=== PATIENT | female | born 1945 | race Caucasian/White ===

== ENCOUNTER → 2020-03-28 09:01 | Outpatient (BNVA) | payer MEDICARE, OTHER, SELFPAY | PROVIDERS: Family Provider Family Medicine; PCP Nurse Practitioner Family; Visit Provider Nurse Practitioner Family | DX: E03.9 Hypothyroidism, unspecified (principal); E78.5 Hyperlipidemia, unspecified | CPT/HCPCS: 80061; 84439; 84443 ==

== ENCOUNTER 2020-04-22 09:15 | Outpatient (CLI) | payer MEDICARE, OTHER, SELFPAY ==
--- NOTE | 2020-04-22 09:26 | MM_ITS ---
WS: [id number] Left breast diagnostic digital mammogram, 04/22/2020 Clinical Data: HX OF BREAST CA (RT MAST) Comparison: 02/03/2019, 01/31/2018, 01/27/2017, 01/27/2016, 01/23/2015, 01/22/2014, 01/20/2013, 04/07/2011, , 02/11/2009, 02/27/2008, 02/23/2007. Findings: The breast shows heterogeneous density. There are benign calcifications in the left breast. No spicul ated masses or clustered calcifications are seen. There are no secondary signs of carcinoma MM/[place] [id number] Impression: 1. Negative left breast mammogram unchanged. Recommend yearly left mammogram. BIRADS: 1-Negative FOLLOW UP: 1 Year Follow-up The CAD relay checker was used.
== END 2020-04-22 09:16 | disposition home or self-care (01) ==
PROVIDERS: PCP Nurse Practitioner Family; Visit Provider Family Medicine
DX: Z85.3 Personal history of malignant neoplasm of breast (principal); E03.9 Hypothyroidism, unspecified
CPT/HCPCS: 77065; 80053; 81000; 84439; 84443

== ENCOUNTER → 2021-03-25 09:00 | Outpatient (BNVA) | payer MEDICARE, SELFPAY | PROVIDERS: PCP Nurse Practitioner Family; Visit Provider Nurse Practitioner Family | DX: E03.9 Hypothyroidism, unspecified (principal); E78.5 Hyperlipidemia, unspecified; Z78.0 Asymptomatic menopausal state | CPT/HCPCS: 80053; 80061; 84439; 84443; 85025 ==

== ENCOUNTER 2021-04-30 08:39 | Outpatient (CLI) | payer MEDICARE, SELFPAY ==
--- NOTE | 2021-04-30 10:00 | MM_ITS ---
WS: [id number] Left breast diagnostic digital mammogram, 04/30/20 Clinical Data: HX OF BREAST CA; RT MASTECTOMY Comparison: 04/22/2020, 02/03/2019, 01/31/2018, 01/27/2017, 11/28/2015, 01/23/2015, 01/22/2014, 01/20/2013, , 04/01/2010, 02/11/2009, 02/27/2008, 02/23/2007. Findings: The left breast shows heterogeneous density. There are benign calcifications and two mole markers. No spiculated masses or clustered calcifications are seen. There are no secondary signs of carcinoma. MM/[place] [id number] Impression: 1. Negative left breast mammogram unchanged. 2. Recommend annual left breast mammogram. BIRADS: 1-Negative FOLLOW UP: 1 Year Follow-up The CAD chemical checker was used.
== END 2021-04-30 08:40 | disposition home or self-care (01) ==
LOC: RADSHAW 08:41
PROVIDERS: PCP Nurse Practitioner Family; Visit Provider Nurse Practitioner Family
DX: Z85.3 Personal history of malignant neoplasm of breast (principal); Z90.11 Acquired absence of right breast and nipple
CPT/HCPCS: 77065

== ENCOUNTER → 2022-03-26 16:08 | Outpatient (BNVA) | payer MEDICARE, SELFPAY | PROVIDERS: PCP Nurse Practitioner Family; Visit Provider Nurse Practitioner Family | DX: E78.5 Hyperlipidemia, unspecified (principal); E03.9 Hypothyroidism, unspecified | CPT/HCPCS: 80053; 80061; 84443; 85025 ==

== ENCOUNTER → 2022-05-18 08:54 | Outpatient (BNVA) | payer MEDICARE, SELFPAY | PROVIDERS: PCP Nurse Practitioner Family; Visit Provider Nurse Practitioner Family | DX: E03.9 Hypothyroidism, unspecified (principal) | CPT/HCPCS: 84443 ==

== ENCOUNTER 2022-05-21 12:16 | Outpatient (CLI) | payer MEDICARE, SELFPAY ==
--- NOTE | 2022-05-21 12:45 | MM_ITS ---
WS: [id number] LEFT 3D TOMOSYNTHESIS DIGITAL MAMMOGRAPHY WITH CAD CLINICAL INFORMATION: RT MAST HISTORY: COMPARISON: April 30, 2021 TECHNIQUE: 3 views of the left breast were obtained. FINDINGS: The left breast is composed of heterogeneous fibroglandular density tissue, which can limit the detec tion of small underlying mass lesions. Punctate and lucent centered calcifications. Vascular calcific ation. No suspicious focal mass, asymmetry, calcifications, or architectural distortion. No evidence of tim gnancy. MM/[place] [id number] IMPRESSION: BI-RADS: 2-Benign FOLLOW UP: 1 Year Follow-up Recommend return to annual diagnostic mammography.
--- NOTE | 2022-05-21 13:30 | XR_ITS ---
WS: [id number] DEXA (DUAL ENERGY X-RAY ABSORPTIOMETRY) Bone mineral density was performed using a [employer] machine. HISTORY: Z78.0 - Asymptomatic menopausal state COMPARISON: 01/27/2019 Lumbar spine BMD (L1-L4): 1.038 g/cm2 T score: -1.2 Z score: 1.1 Total hip BMD: Left: 0.697 g/cm2. T score: -2.5 Z score: -0.3 Right: 0.715 g/cm2. T score: -2.3 Z score: -0.2 10 year probability of a major osteoporotic fracture is 13.6%. Compared to the prior study from 01/27/2019. Lumbar spine bone mineral density has increased by 5.3%. Bilateral hips bone mineral density has decreased by 0.8%. XR/XR DEXA axial skeleton* [id number] IMPRESSION: OSTEOPOROSIS based upon the WHO classification for females. Significant increase in bone mineral density within the lumbar spine since the prior study. No significant change involving the bone mineral density of the hi ps.
== END 2022-05-21 12:17 | disposition home or self-care (01) ==
PROVIDERS: PCP Nurse Practitioner Family; Visit Provider Nurse Practitioner Family
DX: Z85.3 Personal history of malignant neoplasm of breast (principal); Z90.11 Acquired absence of right breast and nipple; Z78.0 Asymptomatic menopausal state; M81.0 Age-related osteoporosis without current pathological fracture
CPT/HCPCS: 77061; 77080

== ENCOUNTER → 2022-12-07 08:51 | Outpatient (BNVA) | payer MEDICARE, SELFPAY | PROVIDERS: PCP Nurse Practitioner Family; Visit Provider Nurse Practitioner Family | DX: E78.5 Hyperlipidemia, unspecified (principal); E03.9 Hypothyroidism, unspecified | CPT/HCPCS: 80053; 80061 ==

== ENCOUNTER 2023-05-24 07:54 | Outpatient (CLI) | payer MEDICARE, SELFPAY ==
--- NOTE | 2023-05-24 08:15 | MM_ITS ---
WS: [id number] DIAGNOSTIC LEFT DIGITAL TOMOSYNTHESIS MAMMOGRAPHY WITH CAD. HISTORY: Z85.3 - Personal history of malignant neoplasm of breast COMPARISON: 05/21/2022, 04/30/2021 Technique: CC, MLO and ML views. Breast composition: There are scattered areas of fibroglandular density. Benign calcifications centra l left breast. No distortion. No mass. IMPRESSION: MM/[place] [id number] BI-RADS: 2-Benign FOLLOW UP: 1 Year Follow-up
== END 2023-05-24 07:55 | disposition home or self-care (01) ==
PROVIDERS: PCP Nurse Practitioner Family; Visit Provider Family Medicine
DX: Z85.3 Personal history of malignant neoplasm of breast (principal)
CPT/HCPCS: 77061; G0279

== ENCOUNTER → 2023-06-02 11:18 | Outpatient (BNVA) | payer MEDICARE, SELFPAY | PROVIDERS: PCP Nurse Practitioner Family; Visit Provider Nurse Practitioner Family | DX: E03.9 Hypothyroidism, unspecified (principal); E78.5 Hyperlipidemia, unspecified | CPT/HCPCS: 84443 ==

== ENCOUNTER → 2024-02-01 08:47 | Outpatient (BNVA) | payer MEDICARE, SELFPAY | PROVIDERS: PCP Nurse Practitioner Family; Visit Provider Nurse Practitioner Family | DX: E78.5 Hyperlipidemia, unspecified (principal); E03.9 Hypothyroidism, unspecified | CPT/HCPCS: 80053; 80061; 84443 ==

== ENCOUNTER 2024-06-07 13:30 | Outpatient (CLI) | payer MEDICARE, SELFPAY ==
--- NOTE | 2024-06-07 14:00 | MM_ITS ---
WS: [id number] LEFT 3D TOMOSYNTHESIS DIGITAL MAMMOGRAPHY WITH CAD CLINICAL INFORMATION: Z85.3 - Personal history of malignant neoplasm of breast HISTORY: History of RIGHT mastectomy COMPARISON: 2022 TECHNIQUE: 3 views of the left breast were obtained. FINDINGS: The left breast is composed of heterogeneous fibroglandular density tissue, which can limit the detec tion of small underlying mass lesions. Vascular calcifications. Incidental punctate and lucent center ed calcifications. No suspicious focal mass, asymmetry, calcifications, or architectural distortion. No evidence of tim gnancy. MM/[place] [id number] IMPRESSION: BI-RADS: 2-Benign FOLLOW UP: 1 Year Follow-up Recommend return to annual diagnostic mammography.
--- NOTE | 2024-06-07 14:30 | XR_ITS ---
WS: [email or web address] SCREENING DEXA SCAN [employer] CLINICAL INFORMATION: Z78.0 - Asymptomatic menopausal state COMPARISON: 2021 FINDINGS: The L1-L4 bone mineral density measures 0.985 g/cm2. This corresponds to a T score score of -1.6 and Z score of 0.7. Left femoral neck bone mineral density measures 0.692 g/cm2. This corresponds to a T score of -2.5 an d Z score of -0.2. Right femoral neck bone mineral density measures 0.683 g/cm2. This corresponds to a T score -2.6of an d Z score of -0.3. Mean femoral neck bone mineral density measures 0.687 g/cm2. This corresponds to a T score of -2.5 an d Z score of -0.3. XR/XR DEXA axial skeleton* [id number] IMPRESSION: Osteopenia lumbar spine. Osteoporosis femoral necks. Patient's FRAX calculated 10 year probability for major osteoporotic fracture i s 15.0% and osteoporotic hip fracture is 5.2%. Bone mineral density lumbar spine decreased -1.1% Bone mineral density femoral necks decreased -2.7%
== END 2024-06-07 13:31 | disposition home or self-care (01) ==
LOC: RAD 13:31
PROVIDERS: PCP Nurse Practitioner Family; Visit Provider Nurse Practitioner Family
DX: Z78.0 Asymptomatic menopausal state; Z12.31 Encounter for screening mammogram for malignant neoplasm of breast; Z85.3 Personal history of malignant neoplasm of breast
CPT/HCPCS: 77061; 77080; G0279

== ENCOUNTER → 2025-01-29 09:01 | Outpatient (BNVA) | payer MEDICARE, SELFPAY | PROVIDERS: PCP Nurse Practitioner Family; Visit Provider Nurse Practitioner Family | DX: E78.5 Hyperlipidemia, unspecified (principal); E03.9 Hypothyroidism, unspecified | CPT/HCPCS: 80053; 80061; 84443 ==

== ENCOUNTER 2025-06-13 09:31 | Outpatient (CLI) | payer MEDICARE, SELFPAY ==
--- NOTE | 2025-06-13 10:00 | MM_ITS ---
WS: [id number] DIAGNOSTIC LEFT DIGITAL BREAST TOMOSYNTHESIS WITH CAD HISTORY: Z85.3 - Personal history of malignant neoplasm of breast COMPARISON: 06/07/2024, 05/24/2023, 05/21/2022 Left craniocaudal, mediolateral oblique and medial lateral images are submitted with tomosynthesis and SM. Computer aided detection performed. Breast composition: The breasts are heterogeneously dense, which may obscure small masses. No suspicious masses or calcifications. No architectural distortion. Very similar fibroglandular pattern when compared to the most recent exam. Benign calcifications scattered within the breast. MM/MM diag LT tomosynthesis [id number] IMPRESSION: BI-RADS: 2 - Benign FOLLOW UP: 1 Year Follow-up
== END 2025-06-13 09:32 | disposition home or self-care (01) ==
LOC: RAD 09:33
PROVIDERS: PCP Nurse Practitioner Family; Visit Provider Nurse Practitioner Family
DX: Z85.3 Personal history of malignant neoplasm of breast (principal); R92.333 Mammographic heterogeneous density, bilateral breasts; R92.1 Mammographic calcification found on diagnostic imaging of breast
CPT/HCPCS: 77061; G0279

== ENCOUNTER → 2025-08-06 09:00 | Outpatient (BNVA) | payer MEDICARE, SELFPAY | PROVIDERS: PCP Nurse Practitioner Family; Visit Provider Nurse Practitioner Family | DX: E78.5 Hyperlipidemia, unspecified (principal); E03.9 Hypothyroidism, unspecified | CPT/HCPCS: 80053; 80061; 84443 ==